=== PATIENT | female | born 1985 | race Caucasian/White ===

== ENCOUNTER → 2016-08-25 | Outpatient (CLI) | payer OTHER ==
[~2016-08-25] MED LIST: CLIN300C2 PO; CYAN10005 PO; ERYOPO OPL; FERR325T51 PO; FLUC150T PO; LEVO100T PO; LEVO112T4 PO; MULT-240 PO; WARF5TAB90 PO
--- NOTE | 2016-08-25 14:07 | DIAGNOSTIC IMAGING REPORT ---
ABDOMEN ULTRASOUND FOR HERNIA CLINICAL HISTORY: Umbilical pain. Assess for hernia. COMPARISON STUDY: None. FINDINGS: No evidence for an umbilical or periumbilical hernia. No fluid collection or masses within the anterior abdominal wall IMPRESSION: No evidence for an umbilical hernia. Electronically signed by: Heladio Capps M.D. 08/25/2016 2:05 PM Dictated Date/Time: 08/25/2016 2:05 PM
== END | disposition home or self-care (01) ==
LOC: C.ULTR 13:31
PROVIDERS: ATTEND Surgery
DX: R10.33 Periumbilical pain (principal)

== ENCOUNTER 2016-10-16 15:36 | Emergency (ER) | payer OTHER ==
[~2016-10-16] VITALS: Ht 160 cm; Wt 70.4 kg
[~2016-10-16 15:36] MED LIST changes: -CLIN300C2 PO; -CYAN10005 PO; -ERYOPO OPL; -FLUC150T PO; -LEVO100T PO; -LEVO112T4 PO; -MULT-240 PO
[2016-10-16 15:38] VITALS: TEMP 36.6; Ht 160 cm; Wt 70.4 kg
--- NOTE | 2016-10-16 15:54 | EMERGENCY ROOM VISIT NOTE ---
History Report prepared by Shea: Jami Linda Under the Supervision of: Dr. Kavon Dudley M.D. 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 The patient states that she has been having trouble grasping items recently due to her symptoms. The patient states the that she also has a bruise on her upper right arm that she is unsure what it is from. The patient states that she does type occasionally but has done it more often recently due to an online course. The patient denies smoking or any chance of . The patient states she does have a history of blood clots concerning with her symptoms causing her to come to the ED. The patient denies currently taking any Coumadin.The patient denies any left hand finger pain or numbness. Source of History: patient Onset: 1 week ER MEDICAL TECHNICIAN Position: finger(s) (left hand) Timing: other (persistent) Note: Associated symptoms: bruise on upper right arm. Patient denies left hand finger pain or numbness. Review of Systems See HPI for pertinent positives & negatives. A total of 10 systems reviewed and were otherwise negative. Past Medical & Surgical Medical Problems: (1) Uterine contractions at greater than 20 weeks of gestation Family History Cancer Diabetes mellitus Hypertension Social History Smoking Status: Current Every Day Smoker Alcohol Use: none Drug Use: none Marital Status: in relationship Housing Status: lives with family Occupation Status: unemployed Current/Historical Medications Scheduled Levothyroxine Sodium (Levothyroxine Sodium), Unknown Dose PO DAILY Allergies Coded Allergies: Penicillins (Verified Allergy, Mild, HIVES, 10/16/16) Dust (Unverified Allergy, Unknown, UNKNOWN, 10/16/16) Molds & Smuts (Unverified Allergy, Unknown, UNKNOWN, 10/16/16) POLLEN (Unverified Allergy, Unknown, UNKNOWN, 10/16/16) Physical Exam Vital Signs Date Time Temp Pulse Resp B/P Pulse Ox O2 Delivery O2 Flow Rate FiO2 10/16/16 17:18 98 20 127/79 100 10/16/16 15:38 36.6 112 18 133/80 100 Room Air Physical Exam GENERAL: Patient is a healthy-appearing well-nourished HEAD: Normocephalic atraumatic EYES: Ocular movements intact pupils equal and react to light OROPHARYNX mucous membranes are moist no exudates present no erythema or edema present NECK: Supple no nuchal rigidity CHEST: Good equal expansion LUNGS: Clear and equal to auscultation CARDIAC: Normal S1 and S2 ABDOMEN: Soft nontender no guarding BACK: No CVA tenderness EXTREMITIES: No pain upon palpation normal muscle strength in all groups no clubbing cyanosis or edema. Positive tinel and phalen signs. NEURO: Patient is following commands is answering questions appropriately. Alert and oriented x3 Cranial Nerves 2-12 grossly intact Medical Decision & Procedures ER Provider Diagnostic Interpretation: US results as stated below per my review and radiologist interpretation: ULTRASOUND LEFT UPPER EXTREMITY VENOUS CLINICAL HISTORY: Left arm pain and bruising. COMPARISON STUDY: No priors. TECHNIQUE: Real-time, grayscale, and color Doppler sonography of the deep veins of the left upper extremity is performed. Compression and augmentation were utilized. FINDINGS: There is no sonographic evidence of deep venous thrombosis identified in the left upper extremity. The left internal jugular, axillary, and brachial veins are patent and normally compressible. Normal venous waveforms and augmentation are seen within the left subclavian vein. The cephalic and basilic veins are clear. The visualized radial and ulnar veins are patent. IMPRESSION: There is no sonographic evidence of deep venous thrombosis identified in the left upper extremity. Electronically signed by: Shadi Akers M.D. 10/16/2016 4:45 PM Dictated Date/Time: 10/16/2016 4:45 PM ED Course 1545: Past medical records reviewed. The patient was evaluated in room B2. A complete history and physical examination was performed. 1712: Upon reexamination the patient is resting comfortably. I discussed results and treatment plan with the patient. She verbalizes agreement and understanding. The patient is ready for discharge. Medical Decision Differential diagnosis: Etiologies such as DVT, musculoskeletal, infection, joint effusion, trauma, lymphedema, idiopathic, CHF, as well as others were entertained. This is a 31-year-old female who presents emergency department complaining of numbness and tingling to her left hand fingers. The numbness and tingling is reproduced with both Phinal and Tennel's maneuver. Repeat examination revealed improvement in the patient's symptoms. I do believe that the patient is well enough that she can be discharged home for follow-up with orthopedics. The patient is requesting an ultrasound for her arm and she has a bruise and has a history of a DVT. The ultrasound does not show any evidence of a DVT and I feel the patient was safe enough to be discharged home. Patient was in agreement with the treatment plan. Impression Primary Impression: Carpal tunnel syndrome of left wrist Scribe Attestation The scribe's documentation has been prepared under my direction and personally reviewed by me in its entirety. I confirm that the note above accurately reflects all work, treatment, procedures, and medical decision making performed by me. Departure Information Dispostion Home / Self-Care Referrals Manju Yang PA-C (PCP) Forms HOME CARE DOCUMENTATION FORM, IMPORTANT VISIT INFORMATION Patient Instructions My [facility] Additional Instructions Follow up with DR Beal's office Take 600 mg Ibuprofen every 6 hours You have been examined and treated today on an emergency basis only. This is not a substitute for, or an effort to provide, complete comprehensive medical care. It is impossible to recognize and treat all injuries or illnesses in a single emergency department visit. It is therefore important that you follow up closely with Dr Yang. Call as soon as possible for an appointment. Thank you for your time and consideration. I look forward to speaking with you again soon. Please don't hesitate to call us if you have any questions.
[2016-10-16] MEDS ORDERED: LEVO112T4 PO (15:57)
--- NOTE | 2016-10-16 16:46 | DIAGNOSTIC IMAGING REPORT ---
ULTRASOUND LEFT UPPER EXTREMITY VENOUS CLINICAL HISTORY: Left arm pain and bruising. COMPARISON STUDY: No priors. TECHNIQUE: Real-time, grayscale, and color Doppler sonography of the deep veins of the left upper extremity is performed. Compression and augmentation were utilized. FINDINGS: There is no sonographic evidence of deep venous thrombosis identified in the left upper extremity. The left internal jugular, axillary, and brachial veins are patent and normally compressible. Normal venous waveforms and augmentation are seen within the left subclavian vein. The cephalic and basilic veins are clear. The visualized radial and ulnar veins are patent. IMPRESSION: There is no sonographic evidence of deep venous thrombosis identified in the left upper extremity. Electronically signed by: Shadi Akers M.D. 10/16/2016 4:45 PM Dictated Date/Time: 10/16/2016 4:45 PM
[2016-10-16 17:18] VITALS: BP 127/79; PULSE 98; O2SAT 100
== END 2016-10-16 17:20 | disposition home or self-care (01) ==
LOC: C.EDB 15:38
DX: G56.02 Carpal tunnel syndrome, left upper limb (principal); F17.200 Nicotine dependence, unspecified, uncomplicated; Z86.718 Personal history of other venous thrombosis and embolism; Z79.899 Other long term (current) drug therapy; Z88.0 Allergy status to penicillin; Z91.09 Other allergy status, other than to drugs and biological substances; Z80.9 Family history of malignant neoplasm, unspecified; Z83.3 Family history of diabetes mellitus; Z82.49 Family history of ischemic heart disease and other diseases of the circulatory system

== ENCOUNTER 2017-01-27 00:57 | Emergency (ER) | payer OTHER ==
[~2017-01-27] VITALS: Ht 160 cm; Wt 75.6 kg
[~2017-01-27 00:57] MED LIST changes: -FERR325T51 PO; +LEVO112T4 PO; -WARF5TAB90 PO
[2017-01-27 01:00] VITALS: TEMP 36.5; Ht 160 cm; Wt 75.6 kg
[2017-01-27] MEDS ORDERED: OPTIRAY 320 IV PRN (01:30)
--- NOTE | 2017-01-27 01:32 | EMERGENCY ROOM VISIT NOTE ---
History First contact with patient: 01:03 Chief Complaint: EYE ASSESSMENT Stated Complaint: PINK EYE,SWELLING History of Present Illness The patient is a 31 year old female who presents to the Emergency Room with complaints of pain and swelling in her left eye. The patient states that she is currently being treated for pinkeye. She started using erythromycin ointment 3 days ago. She states she initially had irritation of the left eye which started 5 days ago. She is additionally being treated with Diflucan for a vaginal yeast infection. She states that the swelling of the eye has increased today. She became nauseous 1 hour ago and vomited. She states that she has difficulty opening the eye and moving the eye due to pain. She rates the discomfort a 1/10 and states it is a stinging, burning pain. She reports a pressure behind her eye. She denies any changes in vision. She has a history of endometriosis and Imani's but denies any other past medical history. She denies any fevers, sore throats, earaches, headache or neck pain. Review of Systems A complete 10 point review of systems was reviewed with the patient with pertinent positives and negatives as per history of present illness. All else were negative. Past Medical/Surgical History Medical Problems: (1) Uterine contractions at greater than 20 weeks of gestation Family History Cancer Diabetes mellitus Hypertension Social History Smoking Status: Never Smoker Alcohol Use: none Drug Use: none Marital Status: in relationship Housing Status: lives with family Occupation Status: unemployed Current/Historical Medications Scheduled Clindamycin Hcl (Cleocin), 300 MG PO QID Cyanocobalamin (Vitamin B-12), Unknown Dose PO DAILY Erythromycin Opth (Erythromycin Opth), 1 CM OPL DAILY Fluconazole (Diflucan), 150 MG PO DIRECTED Levothyroxine Sodium (Synthroid), 100 MCG PO DAILY Multiple Vitamins W/ Minerals (Womens One Daily), 1 TAB PO DAILY Allergies Coded Allergies: Penicillins (Verified Allergy, Mild, HIVES, 01/27/17) Dust (Verified Allergy, Unknown, UNKNOWN, 01/27/17) Molds & Smuts (Verified Allergy, Unknown, UNKNOWN, 01/27/17) POLLEN (Verified Allergy, Unknown, UNKNOWN, 01/27/17) Physical Exam Vital Signs Date Time Temp Pulse Resp B/P (MAP) Pulse Ox O2 Delivery O2 Flow Rate FiO2 01/27/17 04:40 84 18 121/76 100 01/27/17 02:09 89 16 113/78 100 Room Air 01/27/17 01:00 36.5 93 18 129/64 97 Room Air Right Eye Acuity: 20/15 Left Eye Acuity: 20/25 Physical Exam VITALS: Vitals are noted on the nurse's note and reviewed by myself. Vital signs stable. GENERAL: This is a 31-year-old female, in no acute distress, nondiaphoretic, well-developed well-nourished. EARS: External auditory canals clear, tympanic membranes pearly castañeda without erythema or effusion bilaterally. EYES: There is moderate left periorbital edema and erythema. Pupils equal round and reactive to light and accommodation. Left conjunctiva slightly injected. There is whitish discharge from the left eye. Extraocular movements are intact, but patient does report subjective pain in the left eye with range of motion. NOSE: Patent, turbinates without inflammation or discharge. MOUTH: Mucous membranes moist. Tonsils are not enlarged. Pharynx without erythema or exudate. NECK: Supple without nuchal rigidity. No lymphadenopathy. HEART: Regular rate and rhythm without murmurs gallops or rubs. LUNGS: Clear to auscultation bilaterally without wheezes, rales or rhonchi. NEURO: Patient was alert and oriented to person place and time. Medical Decision & Procedures ER Provider Diagnostic Interpretation: CT ORBITS: No fractures. The paranasal sinuses show scattered mucosal thickening and mastoid air cells are clear. Globes are intact. The retro-orbital soft tissues are unremarkable. No abscess. No unusual enhancement. No radiopaque foreign bodies. Radiologist: Louis Rivera MD Laboratory Results 01/27/17 01:25 Red Blood Count 4.85, Mean Corpuscular Volume 72.0, Mean Corpuscular Hemoglobin 22.9, Mean Corpuscular Hemoglobin Concent 31.8, Mean Platelet Volume 10.7, Neutrophils (%) (Auto) 52.0, Lymphocytes (%) (Auto) 34.3, Monocytes (%) (Auto) 8.0, Eosinophils (%) (Auto) 4.9, Basophils (%) (Auto) 0.8, Neutrophils # (Auto) 3.37, Lymphocytes # (Auto) 2.22, Monocytes # (Auto) 0.52, Eosinophils # (Auto) 0.32, Basophils # (Auto) 0.05 01/27/17 01:25 Test 01/27/17 01:25 White Blood Count 6.48 K/uL (4.8-10.8) Red Blood Count 4.85 M/uL (4.2-5.4) Hemoglobin 11.1 g/dL (12.0-16.0) Hematocrit 34.9 % (37-47) Mean Corpuscular Volume 72.0 fL (80-100) Mean Corpuscular Hemoglobin 22.9 pg (25-34) Mean Corpuscular Hemoglobin Concent 31.8 g/dl (32-36) Platelet Count 264 K/uL (130-400) Mean Platelet Volume 10.7 fL (7.4-10.4) Neutrophils (%) (Auto) 52.0 % Lymphocytes (%) (Auto) 34.3 % Monocytes (%) (Auto) 8.0 % Eosinophils (%) (Auto) 4.9 % Basophils (%) (Auto) 0.8 % Neutrophils # (Auto) 3.37 K/uL (1.4-6.5) Lymphocytes # (Auto) 2.22 K/uL (1.2-3.4) Monocytes # (Auto) 0.52 K/uL (0.11-0.59) Eosinophils # (Auto) 0.32 K/uL (0-0.5) Basophils # (Auto) 0.05 K/uL (0-0.2) RDW Standard Deviation 40.1 fL (36.4-46.3) RDW Coefficient of Variation 15.1 % (11.5-14.5) Immature Granulocyte % (Auto) 0.0 % Immature Granulocyte # (Auto) 0.00 K/uL (0.00-0.02) Anion Gap 7.0 mmol/L (3-11) Est Creatinine Clear Calc Drug Dose 105.0 ml/min Estimated GFR () 120.9 Estimated GFR (Non- 104.3 BUN/Creatinine Ratio 9.1 (10-20) Calcium Level 9.1 mg/dl (8.5-10.1) Total Bilirubin 0.2 mg/dl (0.2-1) Aspartate Amino Transf (AST/SGOT) 16 U/L (15-37) Alanine Aminotransferase (ALT/SGPT) 18 U/L (12-78) Alkaline Phosphatase 83 U/L (45-117) Total Protein 7.4 gm/dl (6.4-8.2) Albumin 3.9 gm/dl (3.4-5.0) Globulin 3.5 gm/dl (2.5-4.0) Albumin/Globulin Ratio 1.1 (0.9-2) Human Chorionic Gonadotropin, Qual NEG (NEG) Chemistry Specimen Hemolysis Medications Administered Medications (Trade) Dose Ordered Sig/Woodrow Route Start Time Stop Time Status Last Admin Dose Admin Ondansetron HCl (Zofran Inj) 4 mg STK-MED ONCE .ROUTE 01/27/17 02:14 01/27/17 02:15 DC 01/27/17 02:16 4 MG Clindamycin HCl (Cleocin Cap) 300 mg ONE ONCE PO 01/27/17 04:30 01/27/17 04:31 DC 01/27/17 04:41 300 MG ED Course The patient was evaluated as above. Labs were drawn and IV access was obtained. The patient requested something for pain and was given 4 mg Zofran. Discharge instructions were reviewed with the patient. The patient verbalized understanding of my assessment and treatment plan and was discharged home in good condition. Medical Decision Differential diagnosis includes preseptal cellulitis, orbital cellulitis, allergic reaction, among others. The patient is a 31-year-old female who presents today complaining of left eye pain and swelling. The patient has periorbital edema. She appears to have developed a preseptal cellulitis secondary to her conjunctivitis. A CT scan was performed to rule out orbital cellulitis and did not show any post-septal swelling. Labs were unremarkable. The patient will be treated with clindamycin. She was instructed to follow-up with her primary care provider for a recheck and return here in the meantime if symptoms worsen. Based on the patient's presentation and work up, I feel the patient is stable for outpatient treatment. The patient was educated to return to the emergency department for any worsening of their current condition or new/concerning symptoms. She will follow up with her PCP. Medication reconciliation: I attest that I have personally reviewed the patient 's current medication list. Blood pressure screening: Patient was found to have normal blood pressure on screening and does not require follow-up. Impression Primary Impression: Preseptal cellulitis of left eye Departure Information Dispostion Home / Self-Care Condition GOOD Prescriptions Clindamycin Hcl (CLEOCIN) 300 Mg Cap 300 MG PO QID for 7 Days, #28 CAP Prov: Lakshmi Nelson .ALFREDO 01/27/17 Referrals Manju Yang PA-C (PCP) Patient Instructions My [facility] Additional Instructions You were prescribed clindamycin to be taken as prescribed. This is an antibiotic. All antibiotics have the potential to cause diarrhea. Stop this medication and contact a medical provider if you were to develop any significant adverse side effects including: wheezing, shortness of breath, passing out, vomiting, or a diffuse rash. Always take antibiotics as directed and COMPLETE the ENTIRE course regardless of the improvement of your symptoms. For pain control, you can use the following [id number] medicines (if >12 yo): - Regular strength (325mg/tab) Tylenol (acetaminophen) 2 tabs every 4-6 hours as needed. Do not exceed 12 tablets in a 24 hour period. Avoid taking more than 4 grams (4000 mg) of Tylenol per day. This includes any other sources of acetaminophen you may take on a regular basis. - Regular strength (200 mg/tab) Advil (ibuprofen) 1-2 tabs every 4-6 hours as needed. Do not exceed a dose of 3200 mg per day. Follow-up with your primary care provider within 48 hours. Return to the emergency room for any fevers, worsening swelling, loss of vision or any other worsening or new/concerning symptoms.
[2017-01-27] MEDS ORDERED: MULT-240 PO (01:35)
[2017-01-27] MEDS ORDERED: LEVO100T PO (01:35)
[2017-01-27] MEDS ORDERED: FLUC150T PO (01:35)
[2017-01-27] MEDS ORDERED: ERYOPO OPL (01:35)
[2017-01-27] MEDS ORDERED: CYAN10005 PO (01:35)
[2017-01-27 01:38] LABS: BASO % 0.8 %; BASO ABS # 0.05 K/uL (0-0.2); COMPLETE YES; EOS % 4.9 %; HEMATOCRIT 34.9 % (37-47); LYMPH % 34.3 %; LYMPH ABS # 2.22 K/uL (1.2-3.4); MEAN CORPUSCULAR HEMOGLOBIN 22.9 pg (25-34); MEAN CORPUSCULAR HGB CONC 31.8 g/dl (32-36); MEAN PLATELET VOLUME 10.7 fL (7.4-10.4); PLATELET COUNT 264 K/uL (130-400); RED BLOOD COUNT 4.85 M/uL (4.2-5.4); WHITE BLOOD COUNT 6.48 K/uL (4.8-10.8)
[2017-01-27 02:01] LABS: ALB/GLOB RATIO 1.1 (0.9-2); BUN/CREATININE RATIO 9.1 (10-20); CALCIUM 9.1 mg/dl (8.5-10.1); CREATININE 0.77 mg/dl (0.60-1.20); POTASSIUM 3.9 mmol/L (3.5-5.1)
[2017-01-27 02:10] LABS: PREG INTERNAL NEGATIVE QC NEG CLEAR BACKGROUND; PREG INTERNAL POSITIVE QC POS CONTROL LINE
[2017-01-27] MEDS ORDERED: ONDANSETRON INJ 2 MG/ML 2 ML VIAL ONE (02:14)
[2017-01-27] MEDS ORDERED: NURSING VERBAL MED ORDER ONE (02:30)
[2017-01-27] MEDS ORDERED: CLIN300C2 PO (04:29)
[2017-01-27] MEDS ORDERED: CLINDAMYCIN HCL 150 MG CAP PO ONE (04:30)
[2017-01-27 04:40] VITALS: BP 121/76; PULSE 84; O2SAT 100
--- NOTE | 2017-01-27 06:34 | DIAGNOSTIC IMAGING REPORT ---
CT orbits ORBITS/SELLA/TEMP WITH CLINICAL HISTORY: left eye swelling, pain pain. Edema. TECHNIQUE: Transaxial acquisition. Multi axial reformatted images. COMPARISON STUDY: None FINDINGS: Normal-appearing orbits. The globes are symmetric. Retroseptal structures are intact. Optic nerves are symmetric. No evidence for mass collection or abscess. All major osseous structures are intact. Mild scattered mucosal thickening of the sinuses. IMPRESSION: No acute process. Electronically signed by: Shane Moreira M.D. 01/27/2017 6:32 AM Dictated Date/Time: 01/27/2017 6:31 AM
== END 2017-01-27 04:40 | disposition home or self-care (01) ==
LOC: C.EDB 00:58
DX: L03.213 Periorbital cellulitis (principal); H10.9 Unspecified conjunctivitis; Z79.899 Other long term (current) drug therapy; Z88.0 Allergy status to penicillin; Z91.09 Other allergy status, other than to drugs and biological substances; Z80.9 Family history of malignant neoplasm, unspecified; Z83.3 Family history of diabetes mellitus; Z82.49 Family history of ischemic heart disease and other diseases of the circulatory system; E06.3 Autoimmune thyroiditis

== ENCOUNTER 2017-07-13 14:28 | Emergency (ER) | payer BC, OTHER ==
[~2017-07-13] VITALS: Ht 162.6 cm; Wt 75.8 kg
[~2017-07-13 14:28] MED LIST changes: +CYAN10005 PO; +ERYOPO OPL; +FLUC150T PO; +LEVO100T PO; -LEVO112T4 PO; +MULT-240 PO
[2017-07-13 14:32] VITALS: TEMP 36.7; Ht 162.6 cm; Wt 75.8 kg
[2017-07-13] MEDS ORDERED: SODIUM CHLORIDE 0.9% 500ML 500 ML IV STA (15:03)
[2017-07-13] MEDS ORDERED: ONDANSETRON INJ 2 MG/ML 2 ML VIAL IV STA (15:03)
[2017-07-13] MEDS ORDERED: LEVO100T7 PO (15:06)
--- NOTE | 2017-07-13 15:08 | EMERGENCY ROOM VISIT NOTE ---
History First contact with patient: 14:53 Chief Complaint: OTHER COMPLAINT Stated Complaint: DIAHRREA 4 DAYS, NAUSEA, FEVER AB PAIN, COUGH History of Present Illness The patient is a 32 year old female who presents to the Emergency Room with complaints of nausea, vomiting and diarrhea for the last 4 days. The patient also reports feeling febrile. She did not take her temperature at home. She denies any blood in her stool. The diarrhea has been much worse than the vomiting. She is now feeling slightly lightheaded. She has had some abdominal cramping associated with bowel movements. She denies any known sick contacts. No recent travel. No antibiotic use. Review of Systems 10 system review performed and negative unless noted in HPI or below Past Medical/Surgical History Medical Problems: (1) Uterine contractions at greater than 20 weeks of gestation Imani's disease Endometriosis Kidney stones Family History Cancer Diabetes mellitus Hypertension Social History Smoking Status: Current Every Day Smoker Alcohol Use: none, occasionally Drug Use: none Marital Status: in relationship Housing Status: lives with family Occupation Status: unemployed Current/Historical Medications Scheduled Cyanocobalamin (Vitamin B-12), 1 TAB PO DAILY Dicyclomine Hcl (Bentyl), 20 MG PO TID Levothyroxine Sodium (Levothyroxine Sodium), 100 MCG PO DAILY Multiple Vitamins W/ Minerals (Womens One Daily), 1 TAB PO DAILY Ondasetron Odt (Zofran Odt), 4 MG SL Q6H Physical Exam Vital Signs Date Time Temp Pulse Resp B/P (MAP) Pulse Ox O2 Delivery O2 Flow Rate FiO2 07/13/17 18:24 90 20 115/74 98 Room Air 07/13/17 16:56 82 18 118/81 100 Room Air 07/13/17 14:32 36.7 110 18 124/78 100 Room Air Physical Exam VITALS: Vitals are noted on the nurse's note and reviewed by myself. Vital signs stable. GENERAL: 32-year-old female, mildly acutely ill in appearance, SKIN: The skin was dry HEAD: Normocephalic atraumatic. MOUTH: Mucous membranes slightly dry NECK: Supple without nuchal rigidity. No lymphadenopathy. Cervical spine is nontender. No JVD. HEART: Regular rate and rhythm without murmurs gallops or rubs. LUNGS: Clear to auscultation bilaterally without wheezes, rales or rhonchi. No accessory muscle use. ABDOMEN: Positive bowel sounds x 4.Soft, nontender, without organomegaly. No guarding or rebound tenderness. MUSCULOSKELETAL: No muscle atrophy, erythema, or edema noted Strength 5/5 throughout. NEURO: Patient was alert and oriented to person place and time. Normal sensation to touch. No focal neurological deficits. Medical Decision & Procedures Laboratory Results 07/13/17 15:28 Red Blood Count 5.50, Mean Corpuscular Volume 68.2, Mean Corpuscular Hemoglobin 21.5, Mean Corpuscular Hemoglobin Concent 31.5, Mean Platelet Volume 11.2, Neutrophils (%) (Auto) 55.3, Lymphocytes (%) (Auto) 27.1, Monocytes (%) (Auto) 16.2, Eosinophils (%) (Auto) 1.2, Basophils (%) (Auto) 0.2, Neutrophils # (Auto ) 2.77, Lymphocytes # (Auto) 1.36, Monocytes # (Auto) 0.81, Eosinophils # (Auto ) 0.06, Basophils # (Auto) 0.01 07/13/17 15:28 Test 07/13/17 15:20 07/13/17 15:28 Urine Color YELLOW Urine Appearance CLEAR (CLEAR) Urine pH 6.0 (4.5-7.5) Urine Specific [place] 1.009 (1.000-1.030) Urine Protein NEG (NEG) Urine Glucose (UA) NEG (NEG) Urine Ketones 2+ (NEG) Urine Occult Blood NEG (NEG) Urine Nitrite NEG (NEG) Urine Bilirubin NEG (NEG) Urine Urobilinogen NEG (NEG) Urine Leukocyte Esterase NEG (NEG) Urine Test NEG (NEG) White Blood Count 5.01 K/uL (4.8-10.8) Red Blood Count 5.50 M/uL (4.2-5.4) Hemoglobin 11.8 g/dL (12.0-16.0) Hematocrit 37.5 % (37-47) Mean Corpuscular Volume 68.2 fL (80-100) Mean Corpuscular Hemoglobin 21.5 pg (25-34) Mean Corpuscular Hemoglobin Concent 31.5 g/dl (32-36) Platelet Count 189 K/uL (130-400) Mean Platelet Volume 11.2 fL (7.4-10.4) Neutrophils (%) (Auto) 55.3 % Lymphocytes (%) (Auto) 27.1 % Monocytes (%) (Auto) 16.2 % Eosinophils (%) (Auto) 1.2 % Basophils (%) (Auto) 0.2 % Neutrophils # (Auto) 2.77 K/uL (1.4-6.5) Lymphocytes # (Auto) 1.36 K/uL (1.2-3.4) Monocytes # (Auto) 0.81 K/uL (0.11-0.59) Eosinophils # (Auto) 0.06 K/uL (0-0.5) Basophils # (Auto) 0.01 K/uL (0-0.2) RDW Standard Deviation 37.6 fL (36.4-46.3) RDW Coefficient of Variation 15.3 % (11.5-14.5) Immature Granulocyte % (Auto) 0.0 % Immature Granulocyte # (Auto) 0.00 K/uL (0.00-0.02) Microcytosis PRESENT Anion Gap 7.0 mmol/L (3-11) Est Creatinine Clear Calc Drug Dose 134.5 ml/min Estimated GFR () 141.0 Estimated GFR (Non- 121.7 BUN/Creatinine Ratio 15.4 (10-20) Calcium Level 8.7 mg/dl (8.5-10.1) Magnesium Level 1.7 mg/dl (1.8-2.4) Total Bilirubin 0.3 mg/dl (0.2-1) Aspartate Amino Transf (AST/SGOT) 18 U/L (15-37) Alanine Aminotransferase (ALT/SGPT) 18 U/L (12-78) Alkaline Phosphatase 66 U/L (45-117) Total Protein 7.2 gm/dl (6.4-8.2) Albumin 3.7 gm/dl (3.4-5.0) Globulin 3.5 gm/dl (2.5-4.0) Albumin/Globulin Ratio 1.1 (0.9-2) Lipase 108 U/L (73-393) Date/Time Source Procedure Growth Status 07/13/17 16:00 Stool C.difficile Toxin B Gene (PCR) - Final No C. difficile toxin B gene detected Complete Medications Administered Medications (Trade) Dose Ordered Sig/Woodrow Route Start Time Stop Time Status Last Admin Dose Admin Sodium Chloride 1,000 ml @ 999 mls/hr Q1H1M ONCE IV 07/13/17 15:15 07/13/17 16:15 DC 07/13/17 15:46 999 MLS/HR Sodium Chloride 500 ml @ 999 mls/hr Q31M STAT IV 07/13/17 15:03 07/13/17 15:33 DC 07/13/17 15:46 999 MLS/HR Dicyclomine HCl (Bentyl Tab) 20 mg ONE ONCE PO 07/13/17 15:15 07/13/17 15:16 DC 07/13/17 15:47 20 MG Ondansetron HCl (Zofran Inj) 4 mg NOW STAT IV 07/13/17 15:03 07/13/17 15:05 DC 07/13/17 15:47 4 MG Potassium Chloride (Klor-Con M10) 40 meq NOW STAT PO 07/13/17 16:26 07/13/17 16:27 DC 07/13/17 16:55 40 MEQ Ondansetron HCl (ZOFRAN ODT 4MG Home Pack) 1 homepack UD ONCE PO 07/13/17 18:30 07/13/17 18:31 DC 07/13/17 18:39 1 HOMEPACK Dicyclomine HCl (Dicyclomine HCl 10MG Home Pack) 1 ea UD ONCE PO 07/13/17 18:30 07/13/17 18:31 DC 07/13/17 18:39 1 EA ED Course Patient was seen and examined Vital signs including blood pressure were reviewed medications list was verified with patient Labs were obtained, and a saline lock was established The patient was hydrated with 1.5 L normal saline. She was medicated with Zofran and Bentyl. Upon reevaluation, the patient said that she was feeling somewhat better. We discussed the results of her workup. She voiced understanding. She was given 1 dose of potassium chloride 40 mg once by mouth. The patient was tolerating liquids. She is comfortable being discharged home. I reviewed discharge instructions the patient. They voiced understanding and had no further questions. Medical Decision Differential diagnosis: Viral GI illness, bacterial GI illness, bowel obstruction, inflammatory bowel disease This patient is a 32-year-old female that presents to the emergency department with complaints of nausea, vomiting and diarrhea. She appeared dehydrated on exam. Her abdomen was benign. I do not suspect a surgical abdomen. The patient likely has a viral GI illness. The patient was noted to have slightly low potassium. This was repleted. There is no leukocytosis. She is afebrile here. She is nontoxic in appearance. She is tolerating liquids, and had good symptomatic relief in the emergency department. I believe she is stable to be discharged home. She was encouraged to increase fluids and have close follow- up with her doctor. She is comfortable with this plan. She was instructed to return to the emergency department with any new, worsening or concerning symptoms This chart was completed in part utilizing [employer] Speech Voice Recognition software. Attempts were made to minimize the grammatical errors, random word insertions, pronoun errors and incomplete sentences. Any formal questions or concerns about the content, text or information contained within the body of this dictation should be directly addressed to the provider for clarification. Impression Primary Impression: Vomiting and diarrhea Departure Information Dispostion Home / Self-Care Condition GOOD Prescriptions Dicyclomine Hcl (BENTYL) 20 Mg Tab 20 MG PO TID for abdominal cramping, #15 TAB Prov: Marian Ngo PA-C 07/13/17 Ondasetron Odt (ZOFRAN ODT) 4 Mg Tab 4 MG SL Q6H for Nausea, #20 TAB Prov: Marian Ngo PA-C 07/13/17 Referrals Manju Yang PA-C (PCP) Patient Instructions ED Diet Vomiting Diarrhea, My [facility] Additional Instructions You were evaluated in the emergency department for vomiting and diarrhea. It is very important to increase your fluids over the next several days. I would follow a clear liquid diet such as broth, water, sports drinks and josy armand tonight. If tolerating, please advance to a bland diet such as crackers and toast tomorrow. Zofran 1 tablet under the tongue every 6 hours as needed for nausea Bentyl 1 tab every 8 hours as needed for abdominal cramping Please call your primary care physician to schedule a follow-up appointment as soon as possible Please do not hesitate to return to the emergency department with a new, worsening or concerning symptoms; especially, fever, worsening abdominal pain or persistent vomiting
[2017-07-13] MEDS ORDERED: DICYCLOMINE HCL 20 MG TAB PO ONE (15:15)
[2017-07-13] MEDS ORDERED: SODIUM CHLORIDE 0.9% 1000ML 1,000 ML IV ONE (15:15)
[2017-07-13 15:38] LABS: BASO % 0.2 %; BASO ABS # 0.01 K/uL (0-0.2); EOS % 1.2 %; HEMATOCRIT 37.5 % (37-47); LYMPH % 27.1 %; LYMPH ABS # 1.36 K/uL (1.2-3.4); MEAN CELL VOLUME 68.2 fL (80-100); MEAN CORPUSCULAR HEMOGLOBIN 21.5 pg (25-34); MEAN CORPUSCULAR HGB CONC 31.5 g/dl (32-36); MEAN PLATELET VOLUME 11.2 fL (7.4-10.4); MONO % 16.2 %; NEUT % 55.3 %; PLATELET COUNT 189 K/uL (130-400); WHITE BLOOD COUNT 5.01 K/uL (4.8-10.8)
[2017-07-13 15:57] LABS: COMPLETE YES; MICROCYTOSIS PRESENT
[2017-07-13 16:02] LABS: BUN/CREATININE RATIO 15.4 (10-20); CALCIUM 8.7 mg/dl (8.5-10.1); CREATININE 0.61 mg/dl (0.60-1.20); POTASSIUM 3.2 mmol/L (3.5-5.1)
[2017-07-13 16:04] LABS: ALB/GLOB RATIO 1.1 (0.9-2)
[2017-07-13 16:05] LABS: URINE APPEARANCE CLEAR (CLEAR); URINE BILIRUBIN NEG (NEG); URINE COLOR YELLOW; URINE NITRITE NEG (NEG); URINE SPECIFIC GRAVITY 1.009 (1.000-1.030); UROBILINOGEN NEG (NEG)
[2017-07-13 16:09] LABS: MANUAL MICROSCOPIC REQUIRED? NO; REVIEW REQ? NO
[2017-07-13] MEDS ORDERED: POTASSIUM CHLORIDE 10 MEQ TABCR PO STA (16:26)
[2017-07-13 18:24] VITALS: BP 115/74; PULSE 90; O2SAT 98
[2017-07-13] MEDS ORDERED: ONDA4TAB10 SL (18:25)
[2017-07-13] MEDS ORDERED: DICY20TA35 PO (18:25)
[2017-07-13] MEDS ORDERED: BENTYL HOME PACK 10 MG VIAL PO ONE (18:30)
[2017-07-13] MEDS ORDERED: ONDANSETRON HOME PACK 4MG OD TAB PO ONE (18:30)
== END 2017-07-13 18:53 | disposition home or self-care (01) ==
LOC: C.EDB 14:30 → C.EDC 18:53
DX: R11.10 Vomiting, unspecified (principal); R19.7 Diarrhea, unspecified; E06.3 Autoimmune thyroiditis; N80.9 Endometriosis, unspecified; Z87.442 Personal history of urinary calculi; Z80.9 Family history of malignant neoplasm, unspecified; Z83.3 Family history of diabetes mellitus; Z82.49 Family history of ischemic heart disease and other diseases of the circulatory system; F17.210 Nicotine dependence, cigarettes, uncomplicated; Z79.899 Other long term (current) drug therapy

== ENCOUNTER 2017-12-04 17:23 | Emergency (ER) | payer BC, OTHER ==
[~2017-12-04] VITALS: Ht 160 cm; Wt 79.2 kg
[~2017-12-04 17:23] MED LIST changes: -ERYOPO OPL; -FLUC150T PO; -LEVO100T PO; +LEVO100T7 PO; +ONDA4TAB10 SL
[2017-12-04 17:24] VITALS: TEMP 36.6; Ht 160 cm; Wt 79.2 kg
[2017-12-04] MEDS ORDERED: DiphenhydrAMINE HCL 50 MG/ML VIAL IV STA (17:38)
[2017-12-04] MEDS ORDERED: SODIUM CHLORIDE 0.9% 1000ML 1,000 ML IV STA (17:38)
[2017-12-04] MEDS ORDERED: DEXAMETHASONE SOD INJ 4 MG/ML VIAL IV STA (17:38)
[2017-12-04] MEDS ORDERED: RANITIDINE HCL 50 MG/100 ML D5W IV STA (17:38)
--- NOTE | 2017-12-04 17:50 | EMERGENCY ROOM VISIT NOTE ---
ED Visit Note First contact with patient: 17:29 CHIEF COMPLAINT: Allergic reaction HISTORY OF PRESENT ILLNESS: This 32-year-old female patient presents to the emergency department by private vehicle after they developed sudden onset of throat tightness about 1 hour ago. Patient states that she mowed the grass 2 days ago and thinks that she got exposed to poison rosio, she has been having a rash and itching that has been getting progressively worse. She has mostly noticed the rash on her hands, feet, arms, and thighs. There is no rash on her face. Today she felt like the rash was spreading a little bit and she started to feel some tightness in her throat. She took 25 mg of Benadryl around 5 PM, which she states has seemed to help a little, but she still feels a little bit of tightness. She has also had some associated nausea, but denies any diarrhea , vomiting or abdominal pain. She denies any swelling of the face, lips, or tongue. She denies any voice changes. She denies any shortness of breath, wheezing, or chest tightness/pain. She denies any previous reactions like this before. There has been no change in the patient's soaps, detergents, foods, medications, or other environmental factors. REVIEW OF SYSTEMS: A complete 10 point review of systems was reviewed with the patient with pertinent positives and negatives as per history of present illness. All else were negative. ALLERGIES: Reviewed in chart, see below MEDICATIONS: Reviewed in chart, see below PMH: Reviewed in chart, see problem list below SOCIAL HISTORY: Lives at home. She is a current everyday smoker. PHYSICAL EXAM:VITALS: Vitals are noted on the nurse's note and reviewed by myself. Vital signs stable. GENERAL: Pleasant and cooperative, in no acute distress, non-diaphoretic, well- developed well-nourished. THROAT: No pharyngeal edema or injection, no exudates or tonsillar hypertrophy. Airway patent. LUNGS: Clear to auscultation and breath sounds equal, no wheezes, rales, or rhonchi. No stridor. EYES: PERRLA, EOMI, no discharge or injection. NEUROLOGICAL: Alert and oriented to person, place, and time. Normal sensation to light and sharp touch. HEART: Regular rate without murmurs, ectopy, gallops, or rubs. SKIN: There is an erythematous, raised rash on the bilateral forearms and bilateral hips, appears consistent with contact dermatitis. There are no urticarial lesions or wheals noted. The lips are not swollen. There is no periorbital swelling. EMERGENCY DEPARTMENT COURSE: I examined the patient. Differential diagnosis includes contact dermatitis, poison rosio dermatitis, allergic reaction, anaphylaxis, among others. There is no facial swelling, no wheezing or shortness of breath, airway fully patent. Rash noted on hands, arms, legs, and feet. Patient is mildly tachycardic on initial vital signs. The patient was placed on the hall monitor and was given IV NSS fluid bolus, IV Benadryl 50 mg, IV Zantac 50 mg, and IV Decadron 10 mg. Patient was closely monitored in the emergency department for 2.5 hours. She felt much improved after treatment and states her throat tightness is fully resolved. She also notes an improvement in her rash and itching. Tachycardia downtrending on reassessment. Patient was educated regarding ongoing management at home, follow up, and return precautions, she verbalized understanding. Patient was discharged in stable condition and ambulatory. Problem List Medical Problems: (1) Uterine contractions at greater than 20 weeks of gestation Status: Resolved Current/Historical Medications Scheduled Cyanocobalamin (Vitamin B-12), 1 TAB PO DAILY Levothyroxine Sodium (Levothyroxine Sodium), 100 MCG PO DAILY Multiple Vitamins W/ Minerals (Womens One Daily), 1 TAB PO DAILY Allergies Coded Allergies: Penicillins (Verified Allergy, Mild, HIVES, 12/04/17) Dust (Verified Allergy, Unknown, UNKNOWN, 12/04/17) Molds & Smuts (Verified Allergy, Unknown, UNKNOWN, 12/04/17) POLLEN (Verified Allergy, Unknown, UNKNOWN, 12/04/17) Vital Signs Date Time Temp Pulse Resp B/P (MAP) Pulse Ox O2 Delivery O2 Flow Rate FiO2 12/04/17 20:04 100 16 138/79 98 12/04/17 19:07 98 16 142/87 98 Room Air 12/04/17 18:05 103 12/04/17 18:00 100 Room Air 12/04/17 18:00 100 Room Air 12/04/17 17:24 36.6 110 18 116/75 100 Room Air Medications Administered Medications (Trade) Dose Ordered Sig/Woodrow Route Start Time Stop Time Status Last Admin Dose Admin Ranitidine HCl (zANTac IV) 50 mg NOW STAT IV 12/04/17 17:38 12/04/17 17:41 DC 12/04/17 17:59 50 MG Sodium Chloride 1,000 ml @ 999 mls/hr Q1H1M STAT IV 12/04/17 17:38 12/04/17 18:38 DC 12/04/17 18:00 999 MLS/HR Diphenhydramine HCl (Benadryl Inj) 50 mg NOW STAT IV 12/04/17 17:38 12/04/17 17:41 DC 12/04/17 17:59 50 MG Dexamethasone Sodium Phosphate (Decadron Inj) 10 mg NOW STAT IV 12/04/17 17:38 12/04/17 17:41 DC 12/04/17 17:59 10 MG Departure Information Impression Primary Impression: Allergic reaction Additional Impression: Poison rosio dermatitis Dispostion Home / Self-Care Condition GOOD Referrals Manju Yang PA-C (PCP) Patient Instructions ED Allergic Reaction General Other, ED Dermatitis Poison Rosio, [facility] Additional Instructions You have been treated in the Emergency Department for an Allergic Reaction. You have been treated and monitored in the Emergency Department appropriately. You should take Benadryl (diphenhydramine) 25-50 mg orally every 6 hours for the next 2-3 days. This medication is [id number] and you will NOT need a prescription to purchase this at your local pharmacy. This is to prevent a rebound allergic reaction in the event that allergens are still present in your system. May use calamine lotion or cortisone cream to the rash as needed for itching and irritation. You should follow-up with your primary care provider in 2-3 days for reevaluation. Return to the Emergency Department if your current symptoms worsen despite treatment course outlined above, or if you develop any of the following symptoms : wheezing, tongue or face swelling, tightness in your throat, shortness of breath, chest tightness, or fainting, or for any signs or symptoms of skin infection including increased swelling, redness, pain, pus drainage, or fever/ chills. Work Instructions Return To Work: 2 days Problem Qualifiers Primary Impression: Allergic reaction Encounter type: initial encounter Qualified Codes: T78.40XA - Allergy, unspecified, initial encounter
[2017-12-04 18:00] VITALS: O2SAT 100
[2017-12-04 20:04] VITALS: BP 138/79; PULSE 100; O2SAT 98
== END 2017-12-04 20:06 | disposition home or self-care (01) ==
LOC: C.EDB 17:24 → C.EDD 20:06
DX: T78.40XA Allergy, unspecified, initial encounter (principal); L23.7 Allergic contact dermatitis due to plants, except food; F17.200 Nicotine dependence, unspecified, uncomplicated; Z88.0 Allergy status to penicillin; X58.XXXA Exposure to other specified factors, initial encounter

== ENCOUNTER → 2018-03-03 | Outpatient (CLI) | payer BC, OTHER ==
[~2018-03-03] MED LIST changes: -ONDA4TAB10 SL
--- NOTE | 2018-03-03 10:54 | DIAGNOSTIC IMAGING REPORT ---
THYROID ULTRASOUND HISTORY: THROAT PAIN, KRISTEL'S THYROIDITIS COMPARISON: None. FINDINGS: Right lobe: 5.4 x 1.7 x 1.3 cm. No nodules. The gland is slightly heterogeneous. Left lobe: 5.3 x 1.7 x 0.9 cm. No nodules. The gland is slightly heterogeneous. Isthmus: 2 mm in thickness. No nodules. IMPRESSION: Slightly heterogeneous thyroid gland. No nodules identified. Electronically signed by: Heladio Capps M.D. 03/03/2018 10:52 AM Dictated Date/Time: 03/03/2018 10:51 AM
== END | disposition home or self-care (01) ==
LOC: C.ULTR 10:09
PROVIDERS: ATTEND Physician Assistant
DX: R07.0 Pain in throat (principal); E06.3 Autoimmune thyroiditis

== ENCOUNTER 2019-08-31 05:40 | Observation (INO) ==
--- NOTE | 2019-08-14 13:07 | PAT Medication Instructions ---
Medication Instructions Date of Service August 14, 2019 Home Medications Medication Instructions Recorded medroxyprogesterone 150 mg/mL 150 mg IM ONCE #1 ml 04/12/19 intramuscular suspension Excedrin Migraine 2 tab PO Q6H PRN fexofenadine [Jailene Allergy] 180 mg PO QAM PRN levothyroxine 100 mcg PO QPM medroxyprogesterone 150 mg/mL intramuscular suspension 150 mg IM ONCE albuterol sulfate [Ventolin HFA] 2 puff INHALATION Q4H PRN ascorbic acid (vitamin C) [Vitamin C] 500 mg PO QAM ibuprofen 200 mg PO Q6H PRN Continue as directed medroxyprogesterone 150 mg/mL intramuscular suspension 150 mg IM ONCE ASK your surgeon for instructions Excedrin Migraine 2 tab PO Q6H PRN (contains aspirin) ibuprofen 200 mg PO Q6H PRN DO NOT take the morning of surgery fexofenadine [Jailene Allergy] 180 mg PO QAM PRN ascorbic acid (vitamin C) [Vitamin C] 500 mg PO QAM Take morning of surgery OTHERWISE NOTHING TO EAT OR DRINK AFTER MIDNIGHT: albuterol sulfate [Ventolin HFA] 2 puff INHALATION Q4H PRN (if needed, and bring with you to the hospital) Take evening before surgery levothyroxine 100 mcg PO QPM albuterol sulfate [Ventolin HFA] 2 puff INHALATION Q4H PRN (if needed) Other Notes If you have any questions please call us at [phone] or [phone] or [phone] or [phone]
--- NOTE | 2019-08-15 13:30 | Anesthesiology Consultation ---
Date of Service August 15, 2019 Assessment & Plan (1) Encounter for pre-operative examination: CHECK TEST AM DOS Chart Review Chart Review: Acceptable Risk for Surgery and Patient seen in Pre Admission Testing Teaching & Discussion Instructed NPO after midnight before surgery, except medications with 15 cc of water. Medication instructions provided according to the [facility] guidelines. History Surgery Operation Date: 08/31/19 08:20 Proposed Procedures p Robotic Total Laparoscopic Hysterectomy - Claudia Cruz DO Height/Weight Height: 5 ft 4 in Weight: 73.3 kg Allergies Allergy/AdvReac Type Severity Reaction Status Date / Time mold Allergy Mild sinus Verified 08/15/19 11:57 issues Penicillins Allergy Mild HIVES Verified 08/15/19 11:57 pollen extracts Allergy Mild Sneezing Verified 08/15/19 11:57 nickel AdvReac Unknown JEWELRY Verified 08/15/19 11:57 IRRITAION EARS lidocaine AdvReac Verified 08/15/19 11:57 Dust Allergy Mild Sneezing Uncoded 06/28/19 20:01 Medications Home Medications Medication Instructions Recorded Confirmed Last Taken Excedrin Migraine 2 tab PO Q6H PRN 11/30/18 08/15/19 06/27/19 22:00 2 tab fexofenadine [Jailene Allergy] 180 mg PO QAM PRN 11/30/18 08/15/19 12/11/18 09:00 levothyroxine 100 mcg PO QPM 11/30/18 08/15/19 06/28/19 medroxyprogesterone 150 mg/mL 150 mg IM ONCE #1 ml 04/12/19 08/15/19 05/24/19 intramuscular suspension albuterol sulfate [Ventolin HFA] 2 puff INHALATION Q4H PRN 06/28/19 08/15/19 06/28/19 ascorbic acid (vitamin C) [Vitamin 500 mg PO QAM 08/03/19 08/15/19 Unknown C] ibuprofen 200 mg PO Q6H PRN 08/03/19 08/15/19 Unknown Past Medical History Medical History Asthma EXERCISE INDUCED Cardiac murmur Pt reported h/o, not noted on exam at [facility]. Endometriosis Environmental allergies Imani's disease Heart palpitations NORMAL Holter monitor 04/04/19 History of anemia History of anesthesia reaction "heart fluttered during laparoscopy" pt was told they had to stop operating because of heart rhythm changes; [place] ~ [place]. Attempted to obtain records, but records had been purged. History of seizure 2012 - single episode ruled 2/2 dehydration/acute illness/low K+ per patient Hx of gastroesophageal reflux (GERD) Hx of pulmonary embolus POST AFTER C/S 2014 Hx of tinnitus Hyperlipidemia no meds Hypothyroidism Migraine Psoriasis Seasonal allergies Exercise / Class Metabolic Activity II 4-5 Yardwork/Stairs/Walk up hill (Maybe mild SOB with 1 FOS, no chest pain.) Past Family History Family History Grandmother (Paternal) Family history of diabetes mellitus Father Family hx colonic polyps Skin cancer Mother Hypertension Past Surgical History Surgical History History of section x2 History of laparoscopy 2008 @ [place], [place] History of oral surgery multiple History of wisdom tooth extraction Hx of colonoscopy Past Anesthesia History No Family Hx of Anesthesia Complications Pt reports she can be a little combative coming out of anesthesia. She is unsure if heart rhythm issue during laparoscopy was r/t anesthesia. ATTEMPTED TO OBTAIN RECORDS, BUT HOSPITAL STATED THEY WERE NO LONGER AVAILABLE/OUT OF DATE. History of PONV No Hx of PONV (nausea only) and Hx of Motion Sickness Social History Smoking Status: Current every day smoker tobacco type: cigarettes Smoking cigarettes per day: 5 cpd Do You Dip or Chew Tobacco: No Hx Alcohol Use: Yes Alcohol type: hard liquor alcohol intake frequency: holidays/special occasions only (very rare) Hx Substance Use: No substance use type: does not use Review of Systems Pt denies any recent chest pain, shortness of breath, palpitations, cough, fever or URI. +mild chronic cough 2/2 allergies Physical Exam Vital Signs BP: 109/72 P: 93bpm SPO2: 99% RA T: 97.9 F R: 16 ENMT Mouth: + poor dentition and + chipped teeth (upper cuspid L side); no loose teeth Thyromental Distance: < 3.5 Finger Breadths (3) Mallampati Class: I Neck normal visual inspection; neck extension not limited Respiratory normal respiratory effort Auscultation: lungs clear to auscultation bilaterally Cardiovascular Rate/Rhythm: regular rate and regular rhythm Heart Sounds: no murmur Extremities: no edema Testing Laboratory Results 08/15/19 13:38 08/15/19 13:38 PT 11.0 Seconds (9.0-12.0) 08/15/19 13:38 INR 1.1 (0.9-1.1) 08/15/19 13:38 APTT 25.5 Seconds (21.0-31.0) 08/15/19 13:38 Urine Color [place] 08/15/19 13:38 Urine Appearance Cloudy (Clear) A 08/15/19 13:38 Urine pH 8.0 (4.5-7.5) H 08/15/19 13:38 Ur Specific [place] 1.022 (1.000-1.030) 08/15/19 13:38 Urine Protein Negative (Negative) 08/15/19 13:38 Urine Glucose (UA) Negative (Negative) 08/15/19 13:38 Urine Ketones Trace (Negative) H 08/15/19 13:38 Urine Nitrite Negative (Negative) 08/15/19 13:38 Ur Leukocyte Esterase Trace (Negative) H 08/15/19 13:38 Urine WBC (Auto) 1-5 /hpf (0-5) 08/15/19 13:38 Urine RBC (Auto) >30 /hpf (0-4) H 08/15/19 13:38 U Hyaline Cast (Auto) 0 /lpf (0-5) 08/15/19 13:38 U Epithel Cells (Auto) >30 /lpf (0-5) H 08/15/19 13:38 Urine Bacteria (Auto) Negative (Negative) 08/15/19 13:38 Blood Type O Positive 08/15/19 13:38 Antibody Screen NEGATIVE 08/15/19 13:38 08/15/19 13:38 Urine Culture - Preliminary Urine,Clean Catch Pin-point growth present, reincubating. Electrocardiogram Date: 06/28/19 Findings: + NSR @ 68) iRBBB. Chest X-Ray Date: 06/28/19 Findings: + NAD Echocardiogram Date: 06/14/19 EF: 55-60% Essentially normal study. No significant valvular disease. Other Testing Holter 04/04/19 CONCLUSIONS: 1. Duration - 24 hours 2. Quality - good 3. Dominant rhythm - sinus 4. PACs - none 5. PVCs - none 6. Symptoms - arm pain and chest pain correlated with sinus rhythm. No sustained arrhythmias. No significant pauses.
[2019-08-15 14:15] LABS: Basophils # (auto) 0.05 K/uL (0-0.2); Basophils % (auto) 0.7 %; Eosinophils # (auto) 0.25 K/uL (0-0.5); Eosinophils % (auto) 3.6 %; Hematocrit (blood only) 40.9 % (37-47); Immature Granulocytes # (auto) 0.02 K/uL (0.00-0.02); Immature Granulocytes % (auto) 0.3 %; Mean Corpuscular Hemoglobin 29.9 pg (25-34); Mean Corpuscular Hgb Conc 34.2 g/dL (32-36); Mean Corpuscular Volume 87.4 fL (80-100); Mean Platelet Volume 11.3 fL (7.4-10.4); Monocytes # (auto) 0.52 K/uL (0.11-0.59); Monocytes % (auto) 7.4 %; Platelet Count 210 K/uL (130-400); RDW Coefficient of Variation 12.7 % (11.5-14.5); RDW Standard Deviation 40.4 fL (36.4-46.3); Red Blood Count 4.68 M/uL (4.2-5.4); White Blood Count 7.04 K/uL (4.8-10.8)
[2019-08-15 14:21] LABS: Appearance Urine Cloudy (Clear); Bacteria Urine Automated Negative (Negative); Bilirubin Urine Negative (Negative); Blood Urine 3+ (Negative); Cast Urine Automated 0 /lpf (0-5); Color Urine Orange; Epithelial Cell Urine Auto >30 /lpf (0-5); Glucose Urine UA Negative (Negative); Ketones Urine Trace (Negative); Leukocyte Esterase Urine Trace (Negative); Nitrite Urine Negative (Negative); RBC Urine Automated >30 /hpf (0-4); Specific Gravity Urine 1.022 (1.000-1.030); Urobilinogen Urine Negative (Negative)
[2019-08-15 14:26] LABS: INR 1.1 (0.9-1.1); Partial Thromboplastin Ratio 0.9; Partial Thromboplastin Time 25.5 Seconds (21.0-31.0)
[2019-08-15 14:33] LABS: Protein Urine Negative (Negative); Sulfosalicylic Acid Urine Negative (Negative)
[2019-08-15 15:44] LABS: BUN Creatinine Ratio 13.1 (10-20); Calcium 9.2 mg/dl (8.5-10.1); Creatinine Clr Calc Pharmacy 105.6 ml/min; Est GFR (African American) 122.2; Est GFR (Non-African American) 105.5; Potassium 3.8 mmol/L (3.5-5.1)
[2019-08-31] MEDS ORDERED: CEFAZOLIN 2000MG 2,000 MG/15 ML SYR IV SCH ×2 (06:00)
[2019-08-31] MEDS ORDERED: LR 15ML/HR IV SCH (06:00)
[2019-08-31 06:41] LABS: Basophils # (auto) 0.05 K/uL (0-0.2); Basophils % (auto) 0.9 %; Eosinophils # (auto) 0.22 K/uL (0-0.5); Eosinophils % (auto) 4.1 %; Hematocrit (blood only) 41.4 % (37-47); Hemoglobin 14.4 g/dL (12.0-16.0); Immature Granulocytes # (auto) 0.01 K/uL (0.00-0.02); Immature Granulocytes % (auto) 0.2 %; Lymphocytes # (auto) 1.41 K/uL (1.2-3.4); Lymphocytes % (auto) 26.3 %; Mean Corpuscular Hemoglobin 29.6 pg (25-34); Mean Platelet Volume 11.1 fL (7.4-10.4); Monocytes # (auto) 0.32 K/uL (0.11-0.59); Neutrophils # (auto) 3.35 K/uL (1.4-6.5); Neutrophils % (auto) 62.5 %; Platelet Count 210 K/uL (130-400); RDW Coefficient of Variation 12.4 % (11.5-14.5); RDW Standard Deviation 38.5 fL (36.4-46.3); Red Blood Count 4.87 M/uL (4.2-5.4); White Blood Count 5.36 K/uL (4.8-10.8)
[2019-08-31 06:43] LABS: Mean Corpuscular Hgb Conc 34.8 g/dL (32-36)
[2019-08-31 06:51] LABS: INR 1.1 (0.9-1.1); Partial Thromboplastin Time 26.7 Seconds (21.0-31.0); Prothrombin Time 10.9 Seconds (9.0-12.0)
[2019-08-31] MEDS ORDERED: BUPIVACAINE 0.5 % 5 MG/1 ML MPF 30ML VIAL ONE (07:02)
[2019-08-31] MEDS ORDERED: MIDAZOLAM HCL 1 MG/ML 2ML VIAL ONE (07:05)
[2019-08-31] MEDS ORDERED: fentaNYL citrate 100 MCG/2 ML VIAL ONE (07:05)
[2019-08-31 07:07] LABS: Pregnancy Test, Serum Negative (Negative)
[2019-08-31] MEDS ORDERED: SCOPOLAMINE 1.5 MG TDSY ONE (07:13)
[2019-08-31] MEDS ORDERED: ATROPINE SULFATE 0.1 MG/ML 10ML SYR IV PRN (07:19)
[2019-08-31] MEDS ORDERED: HYDROmorphone INJ 1 MG/ML SYRINGE IV PRN (07:19)
[2019-08-31] MEDS ORDERED: ePHEDrine sulfate 50 MG/ML AMP IV PRN (07:19)
[2019-08-31] MEDS ORDERED: ONDANSETRON INJ 2 MG/ML 2 ML VIAL IV PRN ×2 (07:19→10:25)
[2019-08-31] MEDS ORDERED: SCOPOLAMINE 1.5 MG TDSY TD ONE (07:19)
[2019-08-31] MEDS ORDERED: PROMETHAZINE HCL 12.5 MG in SODIUM CHLORIDE 0.9% 50 ML IV PRN ×2 (07:19→10:25)
--- NOTE | 2019-08-31 07:26 | History & Physical Bridge Note ---
Date of Service August 31, 2019 History & Physical Bridge Note I have examined the patient, reviewed the History & Physical and in the interval since the performance of the History & Physical I have noted the following changes of clinical significance: no changes noted
[2019-08-31] MEDS ORDERED: CHECK SCOPOLAMINE PATCH PLACEMENT SCH (08:00)
[2019-08-31] MEDS ORDERED: HYDROmorphone INJ 2 MG/ML SYR/VIAL ONE (08:22)
[2019-08-31] MEDS ORDERED: NEOSTIGMINE METHYLSULFATE 5 MG/5 ML SYR ONE (08:24)
[2019-08-31] MEDS ORDERED: PROPOFOL IV EMULSION 10 MG/ML 20 ML VIAL IV ONE ×2 (08:24→09:46)
[2019-08-31] MEDS ORDERED: ROCURONIUM BROMIDE 10 MG/ML 5 ML VIAL ONE (08:24)
[2019-08-31] MEDS ORDERED: ONDANSETRON INJ 2 MG/ML 2 ML VIAL ONE (08:24)
[2019-08-31] MEDS ORDERED: GLYCOPYRROLATE 0.2 MG/ML VIAL ONE (08:24)
[2019-08-31] MEDS ORDERED: DEXAMETHASONE SOD INJ 4 MG/ML VIAL ONE (08:24)
[2019-08-31] MEDS ORDERED: TISSEEL FIBRIN SEALANT 10ML TOP ONE (09:51)
[2019-08-31] MEDS ORDERED: KETOROLAC 30 MG/ML VIAL ONE (10:03)
--- NOTE | 2019-08-31 10:17 | Operative Report ---
PG Post Operative Report Pre & Post Diagnosis Operation Date: 08/31/19 07:30 Pre-Op Diagnosis: Menorrhagia Post-Op Diagnosis: Menorrhagia I identified the patient and participated in the time-out.: Yes Procedure Operation Date: 08/31/19 07:30 Actual Procedures p Robotic Total Laparoscopic Hysterectomy, Bilateral Salpingectomy, Cystoscopy - Claudia Cruz DO Surgeon Claudia Cruz, Liner Worker none Estimated Blood Loss 10 Findings Consistent with Post-Op Diagnosis Normal appearing uterus, tubes, ovaries. Adhesive disease. Specimens Uterus, cervix, bilateral fallopian tubes Drains wilcox catheter, clear yellow urine Anesthesia Type General Complications none Disposition Accompanied Patient To Recovery: No Disposition: Recovery Room Indications 34-year-old G2, P2 here for hysterectomy. She has history of heavy menses, over the past 3 months has undergone a trial of Depo-Provera, but is still bleeding. She desires permanent surgical treatment. She has completed childbearing. Description of Procedure Patient was seen in the preoperative holding area, risks benefits and alternatives to surgery reviewed. She elected to proceed with the case. All questions were answered. She had previously signed informed consent under no duress in the office. She is taken to the operating room, general anesthesia was administered. She is prepared and draped in the usual sterile fashion in the dorsolithotomy position with feet in yellowfin stirrups. Timeout was confirmed. A Wilcox catheter was placed in the bladder, a weighted speculum was placed in the vagina and the cervix was visualized. The uterine manipulator was suture tied into place. Attention was then turned turned to the abdomen and gloves were changed. A supraumbilical incision was made with a scalpel, and using the Optiview trocar, the supraumbilical trocar was placed under direct visualization. The pelvis was visualized, and bilateral trochars were placed under direct visualization. This was for a total of 5, with the umbilical trocar and 2 on each side. The robot was docked. Using robotic assist, bilateral ureters were visualized peristalsing in the pelvis. The left fallopian tube was then transected from its mesosalpinx using cautery this was then passed off through the culinary assistant port. In a similar fashion the right fallopian tube was removed. The left utero-ovarian ligament was coagulated and transected, followed by the left round ligament. The broad ligament was opened. The anterior leaf of the broad ligament was dissected off the anterior aspect of the bladder. There was significant scar tissue between bladder and anterior uterus. This was carefully dissected. Next, attention was then turned to the right utero-ovarian ligament. In a similar fashion to the left this was coagulated and transected. This was followed by coagulation and transection of the right round ligament. The right aspect of the anterior leaf of the broad ligament was then opened and dissected off the anterior aspect of the uterus. Bilateral uterine arteries were coagulated and transected. The uterus was then transected from the vaginal cuff and a circumferential incision against the uterine manipulator. The uterus was then delivered through the vagina. Excellent hemostasis was observed at the vaginal cuff. The vaginal cuff was then reapproximated using OV lock suture in a running stitch. Again, excellent hemostasis was observed. Attention was then turned to the bladder. Cystoscopy was performed, bladder was atraumatic. Bilateral ureteral urine jets were visualized. Attention was then turned to the pelvis again, and Tisseel coagulant was applied on all raw surfaces. Excellent hemostasis was observed, the robot was undocked and the abdomen was desufflated of CO2 gas. The trochars were all removed. The camera and culinary assistant port sites were reapproximated in th e subcutaneous tissue using a [id number] stitch of 0 Vicryl suture. All skin incisions were reapproximated using 4-0 Vicryl in a subcuticular stitch. Half percent Marcaine was injected for local anesthetic at the incision sites. The abdomen was cleaned, and dried. The incisions were all reapproximated using Dermabond glue. All instrument, sponge, needle counts were correct x2 at the conclusion of the case. Patient tolerated the procedure well, and is taken to the recovery room in stable and good condition. I attest to the content of the Intraoperative Record and any orders documented therein. Any exceptions are noted below.
[2019-08-31] MEDS ORDERED: SIMETHICONE 80 MG CHEW PO PRN (10:25)
[2019-08-31] MEDS ORDERED: IBUPROFEN 600 MG TAB PO PRN (10:25)
[2019-08-31] MEDS ORDERED: OXYCODONE/ACETAMINOPHEN 5mg/325mg TAB PO PRN ×2 (10:25)
[2019-08-31] MEDS ORDERED: MAGNESIUM HYDROXIDE SUSP 30 ML UDC PO PRN (10:25)
[2019-08-31] MEDS: fentaNYL citrate 100 MCG/2 ML VIAL IV PRN ×2 (10:44→10:49)
[2019-08-31] MEDS ORDERED: FEXOFENADINE 60 MG TAB PO ONE (14:27)
[2019-08-31] MEDS ORDERED: PERCOCET 5/325MG HOMEPACK PO ONE (16:28)
--- NOTE | 2019-08-31 18:20 | Anesthesiology Progress Note ---
Date of Service August 31, 2019 Anesthesia Post Procedure Vital Signs Vital Signs: Temp Pulse Pulse Pulse Resp BP BP 08/31/19 14:00 36.6 C 93 H 18 116/72 08/31/19 13:00 106 H 18 111/73 08/31/19 12:00 99 H 18 113/73 08/31/19 11:30 36.4 C L 85 18 124/75 08/31/19 11:20 71 20 137/70 08/31/19 11:10 36.5 C 69 13 123/87 08/31/19 11:00 95 H 13 136/89 08/31/19 10:50 82 19 125/62 08/31/19 10:40 81 19 122/65 08/31/19 10:30 36.3 C L 69 15 106/66 08/31/19 06:34 36.9 C 102 H 18 120/77 Pulse Ox 08/31/19 14:00 100 08/31/19 13:00 97 08/31/19 12:00 98 08/31/19 11:30 100 08/31/19 11:20 100 08/31/19 11:10 100 08/31/19 11:00 100 08/31/19 10:50 100 08/31/19 10:40 100 08/31/19 10:30 100 08/31/19 06:34 100 Pain Intensity Abdomen: Pain Intensity: 2 Transfer of Care Handoff Completed per policy Notes Mental Status: alert / awake / arousable and participated in evaluation Patient Amnestic to Procedure: Yes Nausea / Vomiting: adequately controlled Pain: adequately controlled Airway Patency, RR, SpO2: stable & adequate BP & HR: stable & adequate Hydration State: stable & adequate Anesthetic Complications: no major complications apparent and Pt Satisfied with anesthetic care
[2019-08-31] MEDS ORDERED: DOCUSATE SODIUM 100 MG CAP PO SCH (21:00)
--- NOTE | 2019-08-31 21:37 | Discharge Summary ---
Date of Service August 31, 2019 Discharge Data Procedures Performed Operation Date: 08/31/19 07:30 Actual Procedures p Robotic Total Laparoscopic Hysterectomy, Bilateral Salpingectomy - Claudia Cruz DO s Cystoscopy - Claudia Cruz DO Hospital Course (1) Heavy menses: Patient underwent the above surgery. She was observed postoperatively, and upon meeting postop goals was discharged to home same day. Followup in office 2, 6 w. Coding Level of Care Code None Diagnoses Heavy menses N92.0
== END 2019-08-31 19:50 | disposition home or self-care (01) ==
LOC: 4N 05:40 → ASU 05:40